=== PATIENT | female | born 1935 | race Caucasian/White ===

== ENCOUNTER 2020-09-04 21:29 | Emergency (ER) | payer MEDICARE, BC ==
[~2020-09-04] VITALS: Ht 157.5 cm; Wt 63.5 kg
--- NOTE | 2020-09-04 21:45 | NUR ---
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 Pt is also very weak, lethargic and slight confused due to her discomfort. Respirations are not labored, O2 sat is at 94% on RA. NSR on Tele. Appears to have frail skin but no skin breakdown/open skin noted. Pt with a drain on RLQ of abdomen. S/P abdominal surgery x approx 4-6 weeks ago at [facility]. Dr. 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 Scheduled to have another surgery on 10/29/20. Dr. Cooper at beside for MSE. He will also be in touch with the surgeon.
[2020-09-04] MEDS ORDERED: ONDANSETRON 4 MG/2 ML VIAL IV ONE (22:00)
[2020-09-04] MEDS ORDERED: HYDROMORPHONE 1 MG/1 ML DISP.SYRIN IV ONE (22:00)
[2020-09-04] MEDS ORDERED: PIPERACILLIN SODIUM/TAZOBACTAM 3.375 G in IV DEXTROSE 5% 50 ML IV ONE (22:00)
[2020-09-04] MEDS ORDERED: IV NORMAL SALINE 1000 ML BAG IV ONE ×2 (22:00→23:00)
[2020-09-04] MEDS ORDERED: HYDROMORPHONE 1 MG/1 ML DISP.SYRIN ONE (22:11)
[2020-09-04] MEDS ORDERED: ONDANSETRON 4 MG/2 ML VIAL ONE (22:11)
[2020-09-04] MEDS ORDERED: PIPERACILLIN/TAZOBACTAM/D5W 50 ML IV ONE (22:12)
[2020-09-04 22:21] LABS: BASOPHILS % (AUTO) 0.1 % (0.0-2.0); HEMATOCRIT 34.6 % (31.2-41.9); HEMOGLOBIN 11.2 g/dL (10.9-14.3); LYMPHOCYTES # (AUTO) 0.3 K/uL (20.0-40.0); LYMPHOCYTES % (AUTO) 1.2 % (20.5-51.5); MEAN CORPUSCULAR HEMOGLOBIN 26.2 uug (24.7-32.8); MEAN CORPUSCULAR HGB CONC 32 g/dL (32.3-35.6); MEAN CORPUSCULAR VOLUME 80.8 fL (75.5-95.3); MONOCYTES # (AUTO) 0.6 K/uL (2.0-10.0); MONOCYTES % (AUTO) 2.6 % (0.0-11.0); NEUTROPHILS # (AUTO) 22.6 K/uL (1.8-8.9); NEUTROPHILS % (AUTO) 96.1 % (38.5-71.5); PLATELET COUNT (AUTO) 372 K/uL (179-408); RED BLOOD CELL COUNT(AUTO) 4.28 MIL/uL (3.63-4.92); WHITE BLOOD COUNT (AUTO) 23.5 K/uL (3.8-11.8)
--- NOTE | 2020-09-04 22:30 | NUR ---
Pt is now more alert and responsive, AO x 4, not lethargic after pain medication. She states that her pain level is now 1/10 and "feels a lot better". Blood cultures and lactic acid are being drawn at this time, prior to ATB administration. Pt is tolerating it well. Informed Consent obtained from patient, as witnessed by RN.
[2020-09-04 22:34] LABS: BILIRUBIN,DIRECT 3.3 mg/dL (0.0-0.2); BILIRUBIN,TOTAL 4.9 mg/dL (0.2-1.0); CREATININE 1.3 mg/dL (0.6-1.3); POTASSIUM 3.3 mmol/L (3.5-5.1); TOTAL PROTEIN, SERUM 6.6 g/dL (6.4-8.2)
[2020-09-04] MEDS ORDERED: IV NORMAL SALINE 250 ML IV ONE (22:51)
[2020-09-04] MEDS ORDERED: SWABABLE VALVE TRANSFER SET EA MC ONE (22:51)
[2020-09-04] MEDS ORDERED: IOHEXOL 300MG/ML 100 ML INFUS..BTL ONE (22:51)
--- NOTE | 2020-09-04 23:33 | NUR ---
Patient is back from CT at this time, same stable condition. Vital signs rechecked and recorded acordingly, no signs of distress. Now saturating at 100% on 2LPM via NC, titrated O2 down to 1LPM via NC, still 100%. Kept her on RA and she is saturating now at 98-99%.
--- NOTE | 2020-09-04 23:38 | NUR ---
DEREK HERNANDEZ On-call Dr. Paul Nielsen ([phone]), [facility]
--- NOTE | 2020-09-04 23:44 | NUR ---
Paged [employer] for panel call. Dr Lizarraga will call back.
--- NOTE | 2020-09-04 23:53 | NUR ---
Dr Pace, patient's primary physician contacted. Dr Cooper discussed patient's case and PCP is willing to accept pt for transfer to [facility] per patient's request.
--- NOTE | 2020-09-04 23:59 | NUR ---
Contacted [facility]. S/w Mehnaz ROBLES, who had asked to send facesheet and patient summary to: [phone]. Pt needs a Medsurg/Tele bed, admitting dx: Gallstone Pancreatitis, Stable for transfer. Will fax and wait to see if bed will be ready.
[2020-09-05 00:38] LABS: *BILIRUBIN,URIN NEGATIVE (NEGATIVE); *CLARITY,URINE CLEAR (CLEAR); *COLOR,URINE YELLOW (YELLOW); *KETONES,URINE NEGATIVE (NEGATIVE); *UROBILINOGEN,URINE 0.2 E.U./dl (NORMAL); LEUKOCYTE ESTERASE ,URINE NEGATIVE (NEGATIVE); NITRITE, URINE NEGATIVE (NEGATIVE); PH,URINE 5.5 (5.0-8.0); UGLUCOSE NEGATIVE (NEGATIVE)
[2020-09-05 00:42] LABS: *BLOOD, URINE NEGATIVE (NEGATIVE)
[2020-09-05] MEDS ORDERED: HYDROMORPHONE 1 MG/1 ML DISP.SYRIN IV ONE (00:45)
--- NOTE | 2020-09-05 00:45 | NUR ---
[facility] refused to take the patient stating that there are no beds available. Due to this family wants to take patient themselves to [facility] against medical advise. Dr Goss explained risks and benefits of leaving including and up to . Patient fully aware and signed dc forms, with at bedside.
[2020-09-05] MEDS ORDERED: HYDROMORPHONE 1 MG/1 ML DISP.SYRIN ONE (00:48)
[2020-09-05 00:52] LABS: BACTERIA,URINE NONE SEEN /HPF (NONE SEEN); MUCUS,URINE FEW /LPF (0-FEW); RBC,URINE 0-3 /HPF (0-3); SQUAMOUS EPITHELIAL CELL,UR FEW /HPF (NONE SEEN); URINE AMORPHOUS URATE FEW /HPF; WBC,URINE 0-3 /HPF (0-3)
--- NOTE | 2020-09-05 00:55 | NUR ---
Patient does not wish to proceed with medical care recommended by Dr. Cooper. Patient given information related to possible complications, up to and including , which could occur as a result of leaving the hospital at this time. Patient verbalizes understanding of risks involved due to leaving against medical advice. Patient has signed AMA form.
[2020-09-05 01:03] VITALS: BP 105/42
== END 2020-09-05 00:55 | disposition left against medical advice (07) ==
LOC: ER 21:29
DX: K85.10 Biliary acute pancreatitis without necrosis or infection (principal); K81.0 Acute cholecystitis; Z85.3 Personal history of malignant neoplasm of breast; Z88.5 Allergy status to narcotic agent; R94.31 Abnormal electrocardiogram [ECG] [EKG]; D72.829 Elevated white blood cell count, unspecified; Z20.822 Contact with and (suspected) exposure to COVID-19
CPT/HCPCS: 36415; 71045; 74177; 76705; 80048; 80076; 81001; 83605; 83690; 84484; 85025; 85730; 87040 ×2; 87086; 87426; 93005; 96365; 96375; 96376; 99285; J1170 ×2; J2405; J2543; Q9967; 70030-TC; C1758; J7030; J7050